=== PATIENT | female | born 1965 | race Caucasian/White ===

== ENCOUNTER 2019-03-02 08:50 | Emergency (ER) | payer OTHER ==
--- NOTE | 2019-03-02 09:12 | EDM.PDOC ---
ED HPI GENERAL MEDICAL PROBLEM - General Chief Complaint: ENT Problem Stated Complaint: STREP OR FLU? Time Seen by Provider: 03/02/19 09:11 Source of Information: Reports: Patient, RN, RN Notes Reviewed History Limitations: Reports: No Limitations - History of Present Illness INITIAL COMMENTS - FREE TEXT/NARRATIVE: Pt c/o fevers, sore throat and cough since 02/26/19. Admits to headache. Denies N/ V, abdominal pain, diarrhea, sputum production, or rash. Onset Date: 02/26/19 Duration: Constant Location: Reports: Generalized Quality: Reports: Ache Severity: Moderate Improves with: Reports: None Worsens with: Reports: None Context: Reports: Sick Contact Throat Pain Score (Numeric/FACES): 7 - Related Data Allergies Allergy/AdvReac Type Severity Reaction Status Date / Time tetracycline Allergy Rash Verified 03/02/19 08:55 Home Meds: Home Meds Estrogens, Conjugated [Premarin] 0.3 mg PO DAILY 03/02/19 [History] Levothyroxine 75 mcg PO ACBREAKFAST 03/02/19 [History] Omeprazole 20 mg PO ACBREAKFAST 03/02/19 [History] Rosuvastatin Calcium 20 mg PO DAILY 03/02/19 [History] Past Medical History Cardiovascular History: Reports: High Cholesterol Endocrine/Metabolic History: Reports: Hypothyroidism - Past Surgical History Female Surgical History: Reports: Hysterectomy Social & Family History - Family History Family Medical History: Noncontributory - Tobacco Use Smoking Status *Q: Never Smoker Second Hand Smoke Exposure: No - Recreational Drug Use Recreational Drug Use: No - Living Situation & Occupation Living situation: Reports: with Spouse, with Family Occupation: Employed ED ROS ENT - Review of Systems Review Of Systems: ROS reveals no pertinent complaints other than HPI. ED EXAM, ENT - Physical Exam Exam: See Below Exam Limited By: No Limitations General Appearance: Alert, WD/WN, No Apparent Distress Eye Exam: Bilateral Eye: Normal Inspection Ears: Normal External Exam, Normal Canal, Hearing Grossly Normal, Normal TMs Nose: No Blood, Nasal Discharge (small amt. clear) Mouth/Throat: Normal Gums, Normal Lips, Normal Teeth, Other (clear postnasal drip, mod. pharyngeal erythema). No: Tonsillar Exudates Head: Atraumatic, Normocephalic Neck: Full Range of Motion, Other (shoddy tender cervical LAD) Respiratory/Chest: No Respiratory Distress, Lungs Clear, Normal Breath Sounds, No Accessory Muscle Use, Chest Non-Tender, Other (occ. harsh cough) Cardiovascular: Normal Peripheral Pulses, Regular Rate, Rhythm, No Edema, No Gallop, No JVD, No Murmur, No Rub Back: Normal Inspection Extremities: Normal Inspection Neurological: Alert, Oriented, Normal Cognition, Normal Gait, No Motor/Sensory Deficits Psychiatric: Normal Affect, Normal Mood Skin: Warm, Dry, Intact, Normal Color, No Rash Course - Vital Signs Last Recorded V/S: Last Vital Signs Temp 36.6 C 03/02/19 08:52 Pulse 92 03/02/19 08:52 Resp 18 03/02/19 08:52 BP 130/88 03/02/19 08:52 Pulse Ox 100 03/02/19 08:52 - Orders/Labs/Meds Orders: Active Orders 24 hr Category Date Time Status CULTURE STREP A CONFIRMATION [RM] Stat Lab 03/02/19 08:52 Results STREP SCRN A RAPID W CULT CONF [RM] Stat Lab 03/02/19 08:52 Results Labs: Rapid Strep: negative Influenza B: negative Influenza A: Positive Departure - Departure Time of Disposition: 09:30 Disposition: Home, Self-Care 01 Condition: Good Clinical Impression: Influenza A - Discharge Information *PRESCRIPTION DRUG MONITORING PROGRAM REVIEWED*: No *COPY OF PRESCRIPTION DRUG MONITORING REPORT IN PATIENT RYANNE: No Instructions: Influenza, Adult, [id number] Forms: ED Department Discharge Additional Instructions: Rx: Tessalon Perles 200mg Frequent saltwater gargles until improved. Follow up in clinic if not improved in 5 days. Return to ER if any breathing difficulties develop. - My Orders Last 24 Hours: My Active Orders 03/02/19 08:52 CULTURE STREP A CONFIRMATION [RM] Stat STREP SCRN A RAPID W CULT CONF [RM] Stat - Assessment/Plan Last 24 Hours: My Active Orders 03/02/19 08:52 CULTURE STREP A CONFIRMATION [RM] Stat STREP SCRN A RAPID W CULT CONF [RM] Stat
== END 2019-03-02 09:45 | disposition home or self-care (01) ==
LOC: DL.ED 08:50
DX: J10.1 Influenza due to other identified influenza virus with other respiratory manifestations (principal); E03.9 Hypothyroidism, unspecified; Z88.1 Allergy status to other antibiotic agents
CPT/HCPCS: 87081; 87430; 87804; 99283